=== PATIENT | female | born 1960 | race African-American/Black ===

== ENCOUNTER 2018-02-01 17:01 | Inpatient (IN) | payer MEDICAID ==
[~2018-02-01] VITALS: Ht 167.6 cm; Wt 102.5 kg
[~2018-02-01 17:01] MED LIST: NORPTMEDS CO
[2018-02-01 18:36] LABS: Basophils # (auto) 0 uL; Basophils % (auto) 0.5 % (0.0-2.0); Eosinophils # (auto) 0.3 uL; Eosinophils % (auto) 4.9 % (0.0-7.0); Hematocrit 43.5 % (36.0-46.0); Hemoglobin 14.2 g/dL (12.2-16.2); Lymphocytes # (auto) 1.8 uL; Mean Corpuscular Hgb Conc. 32.6 g/dL (32.0-36.0); Mean Corpuscular Volume 94.9 fL (80.0-100.0); Monocytes # (auto) 0.5 uL; Monocytes % (auto) 7.2 % (0.0-12.0); Neutrophils # (auto) 4.4 uL; Neutrophils % (auto) 61.4 % (37.0-80.0); Platelet Count (auto) 373 10^3/uL (140-450); Red Blood Cells 4.59 10^6/uL (4.0-5.20); Red Cell Distribution Width 13.8 % (11.8-14.3); White Blood Cell 7.1 10^3/uL (4.4-10.8)
[2018-02-01 18:56] LABS: Albumin 3.8 g/dL (3.4-5.0); Calcium 8.7 mg/dL (8.5-10.1); Potassium 3.8 mmol/L (3.5-5.1)
[2018-02-01 18:58] LABS: BUN/Creatinine Ratio 17.4
[2018-02-01 19:01] LABS: Bilirubin, Total 0.3 mg/dL (0.2-1.0); Total Protein 7.4 g/dL (6.4-8.2)
[2018-02-01] MEDS ORDERED: SODIUM CHLORIDE 0.9% 1,000 ML IV ONE (19:30)
[2018-02-01] MEDS ORDERED: HYDROcodone-ACET 10/325MG TAB PO ONE (19:30)
[2018-02-01] MEDS ORDERED: ONDANSETRON HCL 4 MG/2 ML VIAL IV ONE (20:30)
[2018-02-01] MEDS ORDERED: LEVOFLOXACIN 750MG 150 ML IV ONE (22:00)
[2018-02-01] MEDS ORDERED: PROMETHAZINE HCL 25 MG/ML 1ML IV ONE (23:15)
[2018-02-01] MEDS ORDERED: ACETAMINOPHEN 325 MG TAB PO PRN (23:30)
[2018-02-01] MEDS ORDERED: PROMETHAZINE-DM 5 ML ORAL SYRUP PO PRN (23:30)
[2018-02-01] MEDS ORDERED: ONDANSETRON HCL 4 MG/2 ML VIAL IV PRN (23:30)
[2018-02-01] MEDS ORDERED: TEMAZEPAM 15 MG CAP PO PRN (23:30)
[2018-02-02] VITALS (9 sets, daily range): BP systolic 101–134; BP diastolic 55–73
[2018-02-02] MEDS ORDERED: LEVO25TA49 PO (04:01)
[2018-02-02] MEDS ORDERED: GABA300C10 PO (04:02)
[2018-02-02] MEDS ORDERED: FAM20T PO (04:03)
[2018-02-02] MEDS ORDERED: LISI-275 PO (04:04)
[2018-02-02] MEDS ORDERED: HYDR-4683 PO ×2 (04:07)
[2018-02-02] MEDS: ALBUTEROL SULF 2.5 MG/0.5ML(0.5%) NEB SOLN NEB PRN ×2 (06:00→20:04)
[2018-02-02] MEDS: LEVOTHYROXINE SODIUM 25 MCG TAB PO SCH (07:00)
[2018-02-02 07:01] LABS: Basophils # (auto) 0.1 uL; Basophils % (auto) 0.9 % (0.0-2.0); Eosinophils # (auto) 0.3 uL; Eosinophils % (auto) 4.3 % (0.0-7.0); Hematocrit 40.4 % (36.0-46.0); Hemoglobin 13.1 g/dL (12.2-16.2); Lymphocytes # (auto) 1.8 uL; Lymphocytes % (auto) 28.6 % (10.0-50.0); Mean Corpuscular Hgb Conc. 32.5 g/dL (32.0-36.0); Mean Corpuscular Volume 95.3 fL (80.0-100.0); Monocytes # (auto) 0.5 uL; Monocytes % (auto) 7.3 % (0.0-12.0); Neutrophils # (auto) 3.7 uL; Neutrophils % (auto) 58.9 % (37.0-80.0); Platelet Count (auto) 329 10^3/uL (140-450); Red Blood Cells 4.24 10^6/uL (4.0-5.20); Red Cell Distribution Width 13.8 % (11.8-14.3); White Blood Cell 6.2 10^3/uL (4.4-10.8)
[2018-02-02 07:15] LABS: Albumin 3.1 g/dL (3.4-5.0); BUN/Creatinine Ratio 19.3; Potassium 3.9 mmol/L (3.5-5.1)
[2018-02-02 07:17] LABS: Bilirubin, Total 0.5 mg/dL (0.2-1.0); Total Protein 6.5 g/dL (6.4-8.2)
[2018-02-02] MEDS: LISINOPRIL 5 MG TAB PO SCH (10:00)
[2018-02-02] MEDS: GABAPENTIN 300 MG CAP PO SCH (10:28)
[2018-02-02] MEDS: FAMOTIDINE 20 MG TAB PO SCH ×2 (10:29→22:22)
[2018-02-02] MEDS ORDERED: HYDROcodone-ACET 5/325MG TAB PO PRN (10:45)
[2018-02-02] MEDS ORDERED: guaiFENesin 200 MG/10 ML UD PO PRN (18:00)
[2018-02-02] MEDS ORDERED: LEVOFLOXACIN 500MG 100 ML IV SCH (22:00)
[2018-02-02] MEDS: FLUTICASONE PROP NASAL SPR 0.05 % (50MCG) 16GM EACHNOSTRI SCH (22:22)
[2018-02-02] MEDS: methylPREDNISolone SOD SUCC 40 MG/ML VL IV SCH (22:22)
[2018-02-03 05:19] VITALS: BP 103/63
[2018-02-03] MEDS: LEVOTHYROXINE SODIUM 25 MCG TAB PO SCH (06:46)
[2018-02-03] MEDS: ALBUTEROL SULF 2.5 MG/0.5ML(0.5%) NEB SOLN NEB PRN (07:57)
[2018-02-03 08:27] VITALS: BP 108/58
[2018-02-03 09:00] VITALS: BP 108/58
[2018-02-03] MEDS: FAMOTIDINE 20 MG TAB PO SCH (09:17)
[2018-02-03] MEDS: methylPREDNISolone SOD SUCC 40 MG/ML VL IV SCH (09:17)
[2018-02-03] MEDS: GABAPENTIN 300 MG CAP PO SCH (09:17)
[2018-02-03] MEDS: FLUTICASONE PROP NASAL SPR 0.05 % (50MCG) 16GM EACHNOSTRI SCH (09:17)
[2018-02-03] MEDS: LISINOPRIL 5 MG TAB PO SCH (09:39)
[2018-02-03 13:00] VITALS: BP 132/78
[2018-02-03 13:45] VITALS: BP 132/78
== END 2018-02-03 15:09 | disposition home or self-care (01) | DRG 144 ==
LOC: ER 17:01 → OVERFLOW 17:02 → WEST WING 23:54
PROVIDERS: ADMIT Nurse Practitioner; ATTEND Hospitalist
DX: J20.9 Acute bronchitis, unspecified (principal); J45.41 Moderate persistent asthma with (acute) exacerbation; I10 Essential (primary) hypertension; R06.03 Acute respiratory distress; F17.210 Nicotine dependence, cigarettes, uncomplicated; J98.11 Atelectasis; Z88.5 Allergy status to narcotic agent
CPT/HCPCS: 36415; 71045; 80053; 80320; 83880; 85025; 87040; 87804; 93005; 94640; 94761; 96361; 96365; 96375; J1956; J2405

== ENCOUNTER 2018-03-27 14:22 | Emergency (ER) | payer MEDICAID ==
[~2018-03-27] VITALS: Ht 167.6 cm; Wt 99.8 kg
[~2018-03-27 14:22] MED LIST changes: +FAM20T PO; +GABA300C10 PO; +HYDR-4683 PO; +LEVO25TA49 PO; +LISI-275 PO; -NORPTMEDS CO
[2018-03-27] MEDS ORDERED: cefTRIAXone SOD 1,000 MG VL IM ONE (15:00)
[2018-03-27] MEDS ORDERED: MECLIZINE HCL 25 MG TAB PO ONE (15:00)
[2018-03-27 15:28] LABS: Basophils # (auto) 0.1 uL; Basophils % (auto) 0.8 % (0.0-2.0); Eosinophils # (auto) 0.2 uL; Eosinophils % (auto) 2.9 % (0.0-7.0); Hematocrit 45.5 % (36.0-46.0); Hemoglobin 15.1 g/dL (12.2-16.2); Lymphocytes # (auto) 2.2 uL; Lymphocytes % (auto) 30.2 % (10.0-50.0); Mean Corpuscular Hemoglobin 31.6 pg (28.0-32.0); Mean Corpuscular Hgb Conc. 33.1 g/dL (32.0-36.0); Mean Corpuscular Volume 95.5 fL (80.0-100.0); Monocytes # (auto) 0.5 uL; Monocytes % (auto) 7.4 % (0.0-12.0); Neutrophils # (auto) 4.2 uL; Neutrophils % (auto) 58.7 % (37.0-80.0); Nucleated Red Blood Cells % 0.1 %; Platelet Count (auto) 419 10^3/uL (140-450); Red Blood Cells 4.77 10^6/uL (4.0-5.20); Red Cell Distribution Width 13.7 % (11.8-14.3); White Blood Cell 7.2 10^3/uL (4.4-10.8)
[2018-03-27 15:32] LABS: Urine Bacteria FEW /hpf (None Seen); Urine Blood Negative /uL (Negative); Urine Mucus FEW (None Seen); Urine Specific Gravity 1.029 (1.001-1.035); Urine WBC 8 /hpf (0 - 5)
[2018-03-27 15:38] LABS: Alanine Aminotransferase 22 U/L (13-56); Albumin 3.7 g/dL (3.4-5.0); Anion Gap 10 (5-15); Aspartate Aminotransferase 18 U/L (15-37); BUN/Creatinine Ratio 11.3; Blood Urea Nitrogen 11 mg/dL (7-18); Calcium 8.2 mg/dL (8.5-10.1); Carbon Dioxide 25 mmol/L (21-32); Chloride 107 mmol/L (98-107); GFR African American 77 mL/min; GFR Non-African American 63 mL/min; Glucose 93 mg/dL (74-106); Potassium 3.5 mmol/L (3.5-5.1); Sodium 142 mmol/L (136-145)
[2018-03-27] MEDS ORDERED: LIDOCAINE 1% HCL (LOCAL ANESTH.) INJ 20ML MDV ONE (15:42)
[2018-03-27 15:43] LABS: Alkaline Phosphatase 68 U/L (45-117); Bilirubin, Total 0.3 mg/dL (0.2-1.0); Total Protein 7.5 g/dL (6.4-8.2)
[2018-03-27] MEDS ORDERED: LIDOCAINE 1% HCL (LOCAL ANESTH.) INJ 20ML MDV IJ ONE (15:45)
[2018-03-27 15:46] VITALS: BP 138/99
== END 2018-03-27 16:15 | disposition home or self-care (01) ==
LOC: ER 14:25
DX: R42 Dizziness and giddiness (principal); N39.0 Urinary tract infection, site not specified; F41.9 Anxiety disorder, unspecified; I10 Essential (primary) hypertension; Z88.6 Allergy status to analgesic agent
CPT/HCPCS: 36415; 80053; 81001; 84484; 85025; 93005; 96372; 99285; J0696; J2001; J8597

== ENCOUNTER 2022-11-06 18:48 | Emergency (ER) | payer OTHER, MEDICAID ==
[~2022-11-06] VITALS: Ht 167.6 cm; Wt 106.0 kg
[~2022-11-06 18:48] MED LIST changes: -FAM20T PO; +FAMO20TA10 PO; -HYDR-4683 PO; +HYDR-4833 PO
[2022-11-07] MEDS ORDERED: ACET-1158 PO (00:31)
[2022-11-07] MEDS ORDERED: DOXY-332 PO (00:31)
[2022-11-07 02:57] VITALS: BP 137/76
== END 2022-11-07 03:00 | disposition home or self-care (01) ==
LOC: ER 18:48
DX: J32.9 Chronic sinusitis, unspecified (principal); I10 Essential (primary) hypertension; E03.9 Hypothyroidism, unspecified; Z79.2 Long term (current) use of antibiotics; Z79.899 Other long term (current) drug therapy